=== PATIENT | male | born 1945 | race Caucasian/White ===

== ENCOUNTER → 2016-09-24 | Outpatient (CLI) | payer MEDICARE, OTHER ==
--- NOTE | ~2016-09-24 | ESTC ---
Cardiac Perfusion Imaging Demographics Patient Name KATINA Moser Gender Male Patient Number [id number] Race Visit Number [id number] [place] [id number] Room Number Accession Number [id number] Height 67 inches Date of 1945 Weight 195 pounds Zoë Martinez Date of study 09/24/2016 Physician Supervising /[place] Nicholas KHAN Technologist Francesca Perez MD Ordering Physician Nicholas Hein A scheme technician Stress ECG Reading Nicholas Stringer Nurse Dawn Hathaway Physician A MD BLESSING Dasilva Ti Medications Reviewed with Patient prior to Procedure. Procedure Admit Source:Other. Procedure Type: Nuclear Stress Test:Exercise Procedure Start time: 09/24/2016 08:30 Indications: History of CAD and Angina. Risk Factors The patient risk factors include:peripheral arterial disease, former tobacco use, hypercholesterolemia, treated hypertension, family history of premature CAD, dyslipidemia and ( years not smokin). Conclusions Summary Perfusion Images: The overall quality of the study is fair, due to gastrointestinal tracer uptake. Left ventricular cavity is noted to be normal on the stress and normal on the rest images. There is no evidence of abnormal lung activity. The right ventricle is not visualized an cannot be assessed. Impression ECG portion of exercise stress test is negative for inducible ischemia. DTS was 7 and c/w low risk stress test. Myocardial perfusion imaging is essentially normal and no convincing evidence of any ischemia/infarct. The inferior wall matched defect is consistent with soft tissue attenuation. Overall left ventricular systolic function was normal without regional wall motion abnormalities. Calculated LVEF is 63% and TID ratio is 0.89. There are no previous studies for comparison . Stress Protocols Resting ECG Normal sinus rhythm. Pre-stress physical exam: Patient assessed by Dr Peterson prior to testing. Stress Protocol:Exercise Peak HR:137 bpm Predicted HR: 147 bpm % of predicted HR: 93 ECG Findings No ECG changes suggestive of ischemia. Arrhythmias Occasional PVCs at peak exercise Symptoms No cardiovascular symptoms with maximal exercise. Stress Interpretation Appropriate hemodynamic response to exercise. No significant ST-T wave changes with exercise. EKG portion is negative for ischemia by diagnostic criteria. The Amador Treadmill score was 7 .This corresponds to a low risk stress test. Imaging Results Applied corrections - Motion correction applied High risk findings Summed scores - Summed stress score: 4 - Summed rest score: 10 - Summed difference score: -6 Stress ejection Ejection fraction:63 % EDV :103 ml ESV :38 ml Stroke volume :65 ml LV mass :137 gr Imaging Protocols Rest Stress Isotope:Tc99m Sestamibi IV Isotope: Tc99m Sestamibi IV Isotope dose:12.7 mCi Isotope dose:40.3 mCi Date:09/24/2016 07:32 Date:09/24/2016 08:56 Technique: SPECT Technique: Gated Supine SPECT Supine Scan Time:45-60 minutes post Scan Time:15-30 minutes post injection injection Medical History Admission Data Admission date: 09/24/2016 Admission Time: 07:12 Hospital Status: Outpatient. Signatures dtt: Andres Peterson dtd: 09/24/16 0830 Physician Self Edit
== END | disposition disaster alternative care site (69) ==
LOC: GRAD 09-23 07:15 → GLAB 07:15 → GRAD 07:30
DX: I25.119 Atherosclerotic heart disease of native coronary artery with unspecified angina pectoris (principal); E78.00 Pure hypercholesterolemia, unspecified; E78.5 Hyperlipidemia, unspecified; I10 Essential (primary) hypertension; I73.9 Peripheral vascular disease, unspecified; Z87.891 Personal history of nicotine dependence; Z82.49 Family history of ischemic heart disease and other diseases of the circulatory system
CPT/HCPCS: A9500; J2785